=== PATIENT | female | born 1990 | race Caucasian/White ===

== ENCOUNTER 2023-04-09 18:14 | Emergency (ER) | payer MEDICAID ==
[~2023-04-09] VITALS: Ht 177.8 cm; Wt 100.0 kg
[2023-04-09 18:20] VITALS: BP 126/72; PULSE 86; RESP 18; TEMP 98.4; O2SAT 96
[2023-04-09] MEDS ORDERED: ACETAMINOPHEN 325MG TABLET PO ONE (19:15)
[2023-04-09] MEDS ORDERED: IBUP-2028 MT (20:09)
== END 2023-04-09 18:35 | disposition home or self-care (01) ==
LOC: ER 18:14
DX: S20.219A Contusion of unspecified front wall of thorax, initial encounter (principal); S09.90XA Unspecified injury of head, initial encounter; G89.11 Acute pain due to trauma; Y04.0XXA Assault by unarmed brawl or fight, initial encounter; Y93.89 Activity, other specified; Y92.89 Other specified places as the place of occurrence of the external cause; Y99.8 Other external cause status
CPT/HCPCS: 71045; 99284

== ENCOUNTER 2025-06-02 16:14 | Emergency (ER) | payer MEDICAID ==
[~2025-06-02] VITALS: Ht 177.8 cm; Wt 95.0 kg
[~2025-06-02 16:14] MED LIST: IBUP-2028 MT
[2025-06-02 16:19] VITALS: O2SAT 98
[2025-06-02 17:24] LABS: BASOPHILS % 0.7 % (0.0-2.0); EOSINOPHILS % 1.0 % (0.0-5.0); HEMATOCRIT. 42.8 % (42.0-52.0); HEMOGLOBIN. 15.0 g/dL (14.0-18.0); LYMPHOCYTES % 19.3 % (20.0-50.0); MEAN PLATELET VOLUME 8.4 fl (7.4-10.4); MONOCYTES % 6.5 % (2.0-8.0); NEUTROPHILS % 72.5 % (40.0-76.0); PLATELET 287 x1000/uL (130-400); RED BLOOD CELL COUNT 4.70 mill/uL (4.7-6.1); RED CELL DISTRIBUTION WIDTH 13.1 % (11.6-14.6)
[2025-06-02 17:35] LABS: CREATININE 1.1 mg/dL (0.6-1.3); UREA NITROGEN BLOOD 6 mg/dL (9-23)
[2025-06-02 17:36] LABS: ETHANOL BLOOD < 10 mg/dL (<10)
[2025-06-02 17:37] LABS: ASPARTATE AMINOTRANSFERASE 23 IU/L (<34); BILIRUBIN DIRECT 0.2 mg/dL (<=3.0); BILIRUBIN TOTAL 0.6 mg/dL (0.1-1.0)
[2025-06-02 17:38] LABS: PROTEIN TOTAL 6.8 g/dL (6.0-8.3)
[2025-06-02] MEDS: POTASSIUM CHLORIDE 20MEQ/PACKET PO ONE (19:13)
[2025-06-02 22:50] LABS: CLARITY URINE CLEAR (CLEAR); COLOR URINE YELLOW (YELLOW); GLUCOSE URINE NEGATIVE (NEGATIVE); KETONES URINE TRACE (NEGATIVE); LEUKOCYTE ESTERASE URINE NEGATIVE (NEGATIVE); NITRITE URINE NEGATIVE (NEGATIVE); OCCULT BLOOD URINE NEGATIVE (NEGATIVE); PH URINE 7.0 (4.5-8.0); PROTEIN URINE TRACE (NEGATIVE); SPECIFIC GRAVITY URINE 1.016 (1.005-1.030); UROBILINOGEN URINE 2.0 E.U./dL (0.2-1.0)
[2025-06-02 22:57] LABS: BACTERIA URINE TRACE; RBC URINE 0-2 /hpf (0-2); SQUAMOUS EPITHELIAL CELL URINE NONE SEEN /lpf (RARE/1+); WBC URINE 0-2 /hpf (0-2)
[2025-06-02 23:15] LABS: *AMPHETAMINES SCREEN URINE PRESUMPTIVE POSITIVE (NEGATIVE); *BARBITURATES SCREEN URINE NEGATIVE (NEGATIVE); *BENZODIAZEPINES SCREEN URINE NEGATIVE (NEGATIVE); *COCAINE SCREEN URINE NEGATIVE (NEGATIVE); CANNABINOID URINE SCREEN NEGATIVE (NEGATIVE); ECSTASY MDMA SCREEN URINE NEGATIVE (NEGATIVE); METHADONE URINE SCREEN NEGATIVE (NEGATIVE); OPIATES URINE SCREEN NEGATIVE (NEGATIVE); PHENCYCLIDINE URINE SCREEN NEGATIVE (NEGATIVE)
[2025-06-03] MEDS: SERTRALINE HCL 50MG TABLET PO SCH (10:04)
[2025-06-03] MEDS: OLANZAPINE 5MG TABLET PO SCH (10:04)
[2025-06-03 17:22] VITALS: BP 104/88; PULSE 74; RESP 16; TEMP 36.7; O2SAT 98
[2025-06-03] MEDS ORDERED: TRAZODONE HCL 50MG TABLET PO SCH (21:00)
== END 2025-06-03 17:41 ==
LOC: EDSEX 16:14 → ER 16:14
DX: R45.851 Suicidal ideations (principal); E87.6 Hypokalemia; F20.9 Schizophrenia, unspecified; Z79.899 Other long term (current) drug therapy; Z20.822 Contact with and (suspected) exposure to COVID-19
CPT/HCPCS: 36415; 80048; 80076; 80305; 80307; 80320; 80329; 81003; 85025; 87426; 99285; G0480